=== PATIENT | female | born 1975 | race Caucasian/White ===

== ENCOUNTER 2016-08-25 16:48 | Emergency (ER) | payer MEDICAID, OTHER ==
[~2016-08-25] VITALS: Ht 172.7 cm; Wt 80.0 kg
[~2016-08-25 16:48] MED LIST: BACTDS PO; CEPH-443 PO
[2016-08-25 16:54] VITALS: Ht 172.7 cm; Wt 80.0 kg
[2016-08-25] MEDS ORDERED: ONDANSETRON (ODT) 4 MG TAB ODT STA (18:29)
[2016-08-25] MEDS ORDERED: HYDROCODONE/APAP (5/325) TAB PO ONE (18:30)
[2016-08-25 18:51] LABS: URINE BLOOD (Dip) POC Negative (NEGATIVE)
[2016-08-25] MEDS ORDERED: morphine 10 MG INJ IM ONE (19:00)
--- NOTE | 2016-08-25 19:33 | RADRPT ---
PROCEDURE: CT Head without contrast. CLINICAL INDICATION: Headaches TECHNIQUE: The study was performed utilizing a GE 64-slice multidetector CT scanner. Direct spiral axial CT images of the brain were obtained from the vertex to the skull base without contrast. Cor onal and sagittal reformat images are provided. The CTDI vol is 44.84 mGy and the DLP is 720.23 mGy -cm. The images were reviewed on a PACS workstation. COMPARISON: No prior studies are available for comparison. FINDINGS: The ventricles and cortical sulci are within normal limits. The myers-white matter differentiation i s maintained. No intra or extra-axial fluid collection or mass effect or shift in the midline struc tures is seen. The visualized paranasal sinuses, mastoid air cells, orbits, and calvarium are unrem arkable. IMPRESSION: Unremarkable CT of the head without contrast. RPTAT: HPNM Physician Girish Date Time Electronically viewed and signed by Physician Girish on 08/25/2016 19:33 /
[2016-08-25] MEDS ORDERED: SOD CHLORIDE 0.9% 1,000 ML IV STA (19:35)
[2016-08-25] MEDS ORDERED: KETOROLAC 30 MG INJ IV STA (19:35)
[2016-08-25] MEDS ORDERED: HYDROmorphONE 1 MG/ML SYG IV STA (19:35)
[2016-08-25 19:57] LABS: ADD SCAN DIFF NO
[2016-08-25 19:59] LABS: BASOPHILS % 0.3 % (0.0-2.0); EOSINOPHILS # 0.1 10^3/ul (0.0-0.5); EOSINOPHILS % 1.2 % (0.0-7.0); HEMATOCRIT 42.6 % (37.0-47.0); HEMOGLOBIN 14.5 g/dl (12.0-16.0); LYMPHOCYTES # 2.6 10^3/ul (0.8-2.9); LYMPHOCYTES % 28.9 % (15.0-51.0); MEAN CORPUSCULAR HEMOGLOBIN 28.6 pg (29.0-33.0); MEAN PLATELET VOLUME 9.3 fl (7.4-10.4); MONOCYTE # 0.4 10^3/ul (0.3-0.9); MONOCYTES % 4.2 % (0.0-11.0); NEUTROPHIL # 5.9 10^3/ul (1.6-7.5); NEUTROPHILS % 65.1 % (39.0-77.0); PLATELET COUNT 284 10^3/UL (140-415); RED BLOOD COUNT 5.07 10^6/ul (4.20-5.40); RED CELL DISTRIBUTION WIDTH 11.9 % (11.5-14.5)
[2016-08-25 20:11] LABS: ALBUMIN 4.9 g/dl (3.3-4.9)
[2016-08-25 20:12] LABS: POTASSIUM 4.1 mmol/L (3.5-5.1)
[2016-08-25 20:14] LABS: ALBUMIN/GLOBULIN RATIO 1.32; BILIRUBIN,INDIRECT 0.4 mg/dl (0-1.1); BILIRUBIN,TOTAL 0.4 mg/dl (0.2-1.3); CREATININE 0.74 mg/dl (0.44-1.00); TOTAL PROTEIN 8.6 g/dl (6.1-8.1)
[2016-08-25 20:15] LABS: CALCIUM 9.9 mg/dl (8.4-10.2)
[2016-08-25] MEDS ORDERED: BUTA1CAP39 PO (20:24)
[2016-08-25] MEDS ORDERED: FEXO180T61 PO (20:24)
--- NOTE | 2016-08-25 20:27 | ERD ---
ER Documentation Chief Complaint Date/Time DATE: 08/25/16 TIME: 20:25 Chief Complaint [place] WORSE SINCE 1430, BP HIGH HPI This 41-year-old female complains of sudden onset of headache this afternoon. She did have an episode of coughing prior to the headache. She denies any previous history of headaches or migraines . She denies any recent illness such as fevers, sore throat, vomiting, visual changes, weakness. Describes the headache as being over her head but primarily in the occipital area. ROS All systems reviewed and are negative except as per history of present illness. Medications Home Meds Active Scripts Vugvaxeihriaa-Frrfqqoogw-Qztarool-Codeine* (Fioricet w/ Codeine*) [id number]- 30MG Capsule, 1 CAP PO Q6H Y for PAIN LEVEL 1-5, #15 CAP Prov:KOBE PAZ MD 08/25/16 Fexofenadine Hcl* (Stefany*) 180 Mg Tablet, 180 MG PO DAILY, #15 TAB Prov:KOBE PAZ MD 08/25/16 Cephalexin* (Keflex*) 500 Mg Capsule, 500 MG PO QID for 7 Days, CAP Prov:MARIEL BERGERON PA-C 05/30/15 Sulfamethoxazole-Trimethoprim* (Bactrim* DS) 800-160 Mg Tab, 1 TAB PO BID for 7 Days, TAB Prov:MARIEL BERGERON PA-C 05/30/15 Allergies Allergies: Coded Allergies: No Known Allergy (Unverified , 05/17/13) PMhx/Soc History of Surgery: Yes (gallbladder 2005) Anesthesia Reaction: No Hx Neurological Disorder: No Hx Respiratory Disorders: No Hx Cardiac Disorders: No Hx Psychiatric Problems: No Hx Miscellaneous Medical Probl: No Hx Alcohol Use: No Hx Substance Use: No Hx Tobacco Use: No Smoking Status: Never smoker Physical Exam Vitals Vital Signs Date Time Temp Pulse Resp B/P Pulse Ox O2 Delivery O2 Flow Rate FiO2 08/25/16 20:07 65 18 140/96 99 Room Air 08/25/16 16:54 96.6 70 18 172/110 100 Physical Exam Const: [] Uncomfortable due to headache. Head: Atraumatic Eyes: Normal Conjunctiva. Eyes are PERRLA extraocular movements intact ENT: Normal External Ears, Nose and Mouth. Neck: Full range of motion..~ No meningismus. Resp: Clear to auscultation bilaterally Cardio: Regular rate and rhythm, no murmurs Abd: Soft, non tender, non distended. Normal bowel sounds Skin: No petechiae or rashes Back: No midline or flank tenderness Ext: No cyanosis, or edema Neur: Awake and alert. Normal gait. No appreciable focal neurologic deficits. Psych: Normal Mood and Affect Result Diagram: 08/25/16194408/25/161944 Results 24 hrs Laboratory Tests Test 08/25/16 18:52 08/25/16 19:45 Bedside Urine pH (LAB) 7.0 Bedside Urine Protein (LAB) Negative Bedside Urine Glucose (UA) Negative Bedside Urine Ketones (LAB) Negative Bedside Urine Blood Negative Bedside Urine Nitrite (LAB) Negative Bedside Urine Leukocyte Esterase (L Negative White Blood Count 9.010^3/ul Red Blood Count 5.0710^6/ul Hemoglobin 14.5g/dl Hematocrit 42.6% Mean Corpuscular Volume 84.0fl Mean Corpuscular Hemoglobin 28.6pg Mean Corpuscular Hemoglobin Concent 34.0g/dl Red Cell Distribution Width 11.9% Platelet Count 23919^3/UL Mean Platelet Volume 9.3fl Neutrophils % 65.1% Lymphocytes % 28.9% Monocytes % 4.2% Eosinophils % 1.2% Basophils % 0.3% Nucleated Red Blood Cells % 0.0/100WBC Neutrophils # 5.910^3/ul Lymphocytes # 2.610^3/ul Monocytes # 0.410^3/ul Eosinophils # 0.110^3/ul Basophils # 0.010^3/ul Nucleated Red Blood Cells # 0.010^3/ul Sodium Level 142mmol/L Potassium Level 4.1mmol/L Chloride Level 103mmol/L Carbon Dioxide Level 26mmol/L Anion Gap 17 Blood Urea Nitrogen 10mg/dl Creatinine 0.74mg/dl Glucose Level 99mg/dl Calcium Level 9.9mg/dl Total Bilirubin 0.4mg/dl Direct Bilirubin 0.00mg/dl Indirect Bilirubin 0.4mg/dl Aspartate Amino Transf (AST/SGOT) 33IU/L Alanine Aminotransferase (ALT/SGPT) 61IU/L Alkaline Phosphatase 88IU/L Total Protein 8.6g/dl Albumin 4.9g/dl Globulin 3.70g/dl Albumin/Globulin Ratio 1.32 Current Medications Medications (Trade) Dose Ordered Sig/Jordyn Route PRN Reason Start Time Stop Time Status Last Admin Dose Admin Acetaminophen/ Hydrocodone Bitart ([place] (5/325)) 1 tab ONCE ONCE PO 08/25/16 18:30 08/25/16 18:38 DC Ondansetron HCl (Zofran Odt) 8 mg ONCE STAT ODT 08/25/16 18:29 08/25/16 18:30 DC 08/25/16 18:44 Morphine Sulfate 4 mg 4 mg ONCE ONCE IM 08/25/16 19:00 08/25/16 19:01 DC 08/25/16 18:44 Sodium Chloride (NS) 1,000 ml @ 1,000 mls/hr Q1H STAT IV 08/25/16 19:35 08/25/16 20:34 08/25/16 19:50 Hydromorphone HCl (Dilaudid) 1 mg ONCE STAT IV 08/25/16 19:35 08/25/16 19:36 DC 08/25/16 19:50 Ketorolac Tromethamine (Toradol) 30 mg ONCE STAT IV 08/25/16 19:35 08/25/16 19:36 DC 08/25/16 19:50 Procedures/MDM Patient initially was given morphine 4 mg IM and Zofran [address] brain was performed which is as normal by the radiologist. Patient played of no relief of the headache with morphine. Patient was given IV 1 L normal saline IV, 1 mg Dilaudid IV Toradol 30 mg IV after review of CT. CBC and CMP and urine are negative and hCG is negative. Patient had improved headache after observation treatment. Patient states that she has been having most of her allergies recently given the presence of coughing and headaches she will be treated with Stefany and a short course of Fioricet with codeine for headache. Patient shows no signs to suggest meningitis, intracranial bleeding, subarachnoid hemorrhage, neurologic deficit, additional emergent causes of headache. Patient should however recheck for new or worsening symptoms with primary doctor this week. Departure Diagnosis: Primary Impression: Allergic rhinitis Allergic rhinitis trigger: unspecified Allergic rhinitis seasonality: unspecified seasonality Qualified Code: J30.9 - Allergic rhinitis, unspecified allergic rhinitis trigger, unspecified rhinitis seasonality Additional Impression: Headache Headache type: unspecified Headache chronicity pattern: acute headache Intractability: not intractable Qualified Code: R51 - Acute nonintractable headache, unspecified headache type Condition: Stable Patient Instructions: Headache, Unspecified, Allergic Rhinitis Additional Instructions: Examines normal hoy. Cheque otro vez con barr doctor primario en el proximo shields or regresa para mas o nueva simptomas. KOBE PAZ MD Aug 25, 2016 20:27
[2016-08-25 20:37] VITALS: BP 144/85; PULSE 61; RESP 18; TEMP 98
== END 2016-08-25 20:37 | disposition home or self-care (01) ==
LOC: FTE 16:48
DX: J30.9 Allergic rhinitis, unspecified (principal)
CPT/HCPCS: 36415; 70450; 80053; 81003; 85025; 96372; 96374; 96375; J1170; J1885; J2270; J7030; Z7502; Z7610

== ENCOUNTER 2017-08-26 07:32 | Day surgery (SDC) | END 2017-08-26 10:50 | disposition home or self-care (01) ==